=== PATIENT | female | born 1985 | race Caucasian/White ===

== ENCOUNTER → 2021-04-17 | Outpatient (CLI) | payer BC ==
[~2021-04-17] MED LIST: IOHEXOL 240 MG/ML 50ML VIAL. ONE; IOHEXOL 240 MG/ML 50ML VIAL. PO ONE; IOHEXOL 300 MG/ML 75 ML VIAL. IV ONE
--- NOTE | 2021-04-17 14:06 | RAD ---
EXAM: Abdomen and pelvis CT with intravenous contrast. HISTORY: Pain. TECHNIQUE: Computed tomographic images of the abdomen and pelvis were obtained following the administ ration of intravenous contrast. Multiplanar reformatting was performed. *One or more of the following individualized dose reduction techniques were utilized for this examina tion: 1. Automated exposure control. 2. Adjustment of the mA and/or kV according to patient size. 3. Use of iterative reconstruction technique. COMPARISON: None. FINDINGS: Evaluation of the lower thorax is unremarkable. No hepatic lesion is seen. The gallbladder is surgically absent. The pancreas is unremarkable. The spleen is upper normal in size. The stomach a nd adrenal glands are unremarkable. There is right renal pelviectasis. There is no pascaul hydronephros is. There is no suspicious renal lesion. There is no appendicitis. There is no bowel obstruction. The re is colonic diverticulosis. The bladder is unremarkable. The uterus is absent. There is scar/granul ation tissue along the ventral pelvic wall to the right of midline measuring 3.8 cm. The aorta is nor mal in caliber. There is no lymphadenopathy. There is no suspicious or acute osseous finding. IMPRESSION: 1. No convincing acute abdominal or pelvic finding. 2. Colonic diverticulosis. 3. Right renal pelviectasis. 4. Suspected scar/granulation tissue within the ventral pelvic wall to the right of midline. Electronically signed by: Preethi Alejandra MD (04/17/2021 2:03 PM) [id number]
== END ==
LOC: CT 09:27
PROVIDERS: ATTEND Specialist
DX: K57.30 Diverticulosis of large intestine without perforation or abscess without bleeding (principal); R10.31 Right lower quadrant pain
CPT/HCPCS: 74177; Q9966; Q9967